=== PATIENT | male | born 1965 | race Caucasian/White ===

== ENCOUNTER → 2018-04-03 | Outpatient (CLI) | payer BC ==
--- NOTE | 2018-04-03 11:23 | P.PAINCN ---
History of Present Illness - Reason for Consult Consult date: 04/03/18 - History of Present Illness This is 54 years old male with a chronic history of severe numbness and tingling sensation in his feet , and also he has severe low back pain, patient reported that he had back pain for more than 20 years but, he started having severe numbness and tingling in his feet bilaterally, patient had EMG/nerve conduction study done several years ago, we don't have any report available, and he reported that they told him that he had neuropathy , also patient complaining of severe low back pain which is increased with any activity ,he denies any motor or sensory deficit he denies any change in the bowel movements or urination, he denies any fever or night sweats Medications and Allergies Home Medications Medication Instructions Recorded Confirmed Type Amitriptyline HCl [Elavil] 1 tab PO DAILY 04/03/18 04/03/18 History Atorvastatin [Lipitor] 1 tab PO DAILY 04/03/18 04/03/18 History Gabapentin 1 tab PO QID 04/03/18 04/03/18 History Glucosamine-Chondr 500-400Mg 1 tab PO BID 04/03/18 04/03/18 History Ibuprofen [Motrin Ib] 1 tab PO Q3-4H PRN 04/03/18 04/03/18 History Lisinopril [Zestril] 1 tab PO DAILY 04/03/18 04/03/18 History Multivitamin [Men's Multi-Vitamin] 1 tab PO DAILY 04/03/18 04/03/18 History Naproxen Sodium [Naprelan] 1 tab PO BID 04/03/18 04/03/18 History metFORMIN HCL ER [Glucophage Xr] 1 tab PO DAILY 04/03/18 04/03/18 History Allergies Allergy/AdvReac Type Severity Reaction Status Date / Time No Known Allergies Allergy Verified 04/03/18 10:29 Physical Exam Vitals: Intake and Output 04/02/18 04/03/18 04/03/18 22:59 06:59 14:59 Other: Weight 133.81 kg Social history : not smoker , NO ETOH , NO Illegal drugs use . Review of Systems : 1- Constitutional : no chills , no fever , no night sweats , 2- Ears : no ear discharge , no change in hearing 3-Nose, Mouth ,Throat ; no bleeding gums, no sore throat , no epistaxis , 4-Cardiovascular : Denies chest pain, , no orthopnea , no palpitation 5-Respiratory : Denies cough , no dyspnea , no hemoptysis 6-Gastrointestinal :, no change in bowel habits , no coffee- ground emesis . 7-Genitourinary : No hematuria , no discharge , no incontinence, 8-Musculoskeletal : No gait dysfunction , report low back pain , 9- Neurological : no ataxia , no tremor , no sezure , 10-Psychatric , no suicidal ideation no hallucination 11- Endocrine : no cold intolerence , no polyuria , no polydypsia , 12-Hematologic : no easy bleeding , no easy brusing , 13-Allergic / immunology : no angioedema , no wheezing ,no allergic rhinitis 14-Integumentary : no brttle nails , no change hair / nails , no foot/leg ulcers . Physical Examinations : 1-Constitutional : Cooperative , not in acute distress . 2-HEENT : nech ; supple , no Lymphadenopathy , no Thyromegaly , :eyes , no icterus, no photophobia . ENT : , normal oropharynx , no Thrush 3- Respiratory : Chest clear to auscultations Bilaterally , no wheezing 4- Cardiovascular : regular rate and rhythem , S1 , S2 , no S3 , no S4. 5- Gastrointestinal: abdomen soft no tenderness , no organomegally . 6- Genitourinary : Defferred . 7-Integumentary : No cellulitis , no ulcers , normal skin turgor , no cyanotic . 8- neurologic : Cranial nerve II to XII intact , no focal neurological deffecit 9-psychatric : alert , oriented X 3 , appropriate affect , intact judgment and insight . 10-Lymphatic : no Lymphadenopathy. 11- musculoskeltal: normal gait Lumber spine moter stegnth lower extremities ,thigh and legs 5/5 Right side , 5/5 Left side deep tendon reflexes : normal Knee Jerk , normal ankle Jerk positive lumber facet Loading Test Range of motion of the lumbar spine Flexion 30 degrees, extension 10 degrees strait leg raising test , positive at 60 degree Fabere test positive RT and positive LT . Results Comments: MRI of the lumbar spine done at [facility] in 02/19/2018 multilevel lumbar degenerative disc disease and multilevel facet arthropathy/hypertrophy variable multilevel neuroforaminal narrowing Assessment and Plan Plan: Assessment and plan= lumbar radiculopathy , lumbar foraminal stenosis , lumbar spondylosis with lumbar facet arthropathy Patient would be good candidate to have lumbar epidural steroid injections under fluoroscopy guidancex2, if he continued to have Symptoms after the lumbar epidural steroid injection then we will consider ordering EMG/nerve conduction study. Also if patient continued to have the numbness, and a tingling sensation in the lower extremity we should consider changing Neurontin to Lyrica, patient did continue his current medication Motrin 800 mg every 8 hours, and Neurontin 400 mg 3 times a day Time with Patient: Greater than 30 PQRS Measure Charge Sheet Measure #130: Documentation of Current Meds in Medical Chart: Patient's medications documented in chart Measure #226: Tobacco Use: Screen & Cessation Intervention: Pt not a tobacco user Measure #111: Pneumonia Vaccination: Pneumococcal vaccine NOT administered or previously given Measure #47: Advance Care Plan: Advance care planning discussed & documented, pt chose/unable to give Measure #412: Opioid Treatment Agreement: No documentation of signed opioid treatment agreement Measure #408: Opioid Therapy Follow-up Evaluation: Patient had NO f/u eval minimum every 3 months during opioid therapy Measure #317: Preventitive Care & Scrn High Bld Press & F/U: Pre-hypertensive or hypertensive BP documented, pt will f/u with PCP Measure #128: Body Mass Index (BMI) Screening & Follow-up: BMI documented ABOVE normal parameters - f/u documented Measure #131: Pain Assessment & Follow-up: Pain positive & plan documented, Follow-up scheduled Measure #431: Unhealthy Alcohol Use Preventative Care & Scrn: Patient not identified as an unhealthy alcohol user Home Medications: Ambulatory Orders Amitriptyline HCl [Elavil] 1 tab PO DAILY 04/03/18 Atorvastatin [Lipitor] 1 tab PO DAILY 04/03/18 Gabapentin 1 tab PO QID 04/03/18 Glucosamine-Chondr 500-400Mg 1 tab PO BID 04/03/18 Ibuprofen [Motrin Ib] 1 tab PO Q3-4H PRN 04/03/18 Lisinopril [Zestril] 1 tab PO DAILY 04/03/18 Multivitamin [Men's Multi-Vitamin] 1 tab PO DAILY 04/03/18 Naproxen Sodium [Naprelan] 1 tab PO BID 04/03/18 metFORMIN HCL ER [Glucophage Xr] 1 tab PO DAILY 04/03/18
== END ==
LOC: PNWHC3 10:26
PROVIDERS: ATTEND Specialist
DX: M48.061 Spinal stenosis, lumbar region without neurogenic claudication (principal); M47.26 Other spondylosis with radiculopathy, lumbar region; M46.96 Unspecified inflammatory spondylopathy, lumbar region; Z79.1 Long term (current) use of non-steroidal anti-inflammatories (NSAID); Z79.899 Other long term (current) drug therapy; Z79.84 Long term (current) use of oral hypoglycemic drugs
CPT/HCPCS: 99211

== ENCOUNTER 2018-04-16 08:50 | Day surgery (SDC) | payer BC ==
[2018-04-15 09:49] VITALS: BMI 40.0
[~2018-04-16 08:50] MED LIST: SODIUM CHLORIDE 0.9% 500 ML 500 ML IV SCH
[2018-04-16] MEDS ORDERED: LACTATED RINGERS 1,000 ML IV ONE (09:50)
[2018-04-16 09:51] LABS: Glucose,Whole Blood 122 mg/dL (75-99)
[2018-04-16 09:52] VITALS: TEMP 97
--- NOTE | 2018-04-16 10:24 | P.PCN ---
Date of Procedure: 04/16/18 Procedure(s) Performed: PREOPERATIVE DIAGNOSIS: 1- Lumbar Degenerative Disc Diseases 2-Lumbar Radiculopathy POSTOPERATIVE DIAGNOSIS: 1-Lumber Degenerative Disc Diseases 2-Lumbar Radiculopathy PROCEDURE 1. Lumbar epidural steroid injection under fluoroscopic guidance at the L5-S1 level. 2. Lumbar epidurogram. ANESTHESIA: Local with 1% lidocaine 3 ml and , moderate sedation with intravenous Versed 2 mg ,and fentanyle 50 Mcg EBL: Minimal PROCEDURE INDICATION: The patient with low back pain and radiculitis symptoms unresponsive to conservative treatment. Fluoroscopy was used to optimize visualization of the needle placement and to maximize safety. PROCEDURE DESCRIPTION / TECHNIQUE: The patient was seen and identified in the preoperative area. Risks, benefits , complications including but not limited to infections ,bleeding ,allergic reaction to the medications ,nerve damage and not complete pain releife , and alternatives were discussed with the patient. The patient agreed to proceed with the procedure and signed the consent. IV was started, and vital signs were stable. Patient was taken to the OR and time out was completed. The patient was placed in the prone position on procedure table and a pillow was placed under the abdomen to reduce lumbar lordosis. The lumbosacral area was prepped and draped in the usual sterile fashion.ere closely monitored during the procedure. Conscious sedation was used during the procedure to decrease patients anxiety. Vital signs was monitered during the entire procedure. Using anterior-posterior fluoroscopy, the L5-S1 interlaminar space was identified and the skin over this site was marked and then infiltrated with 1% lidocaine subcutaneously. Subsequently, a 20-gauge Tuohy epidural needle was inserted and advanced toward the epidural space using the ``Loss of resistance technique and guided by AP and lateral fluoroscopy. The correct needle position in the epidural space was verified with the injection of 2 mL of the water soluble contrast dye Isovue 200 contrast and observing an excellent epidurogram with the epidural spread of the dye, after negative aspiration for blood and CSF and in the absence of paresthesias. Again after negative aspiration, a 6 ml mixture containing 80 mg of Depo-medrol , and 2 ml of preservative free Normal Saline, and 2 ml of preservative free lidocaine 1% solution was injected and a washout of epidurogram was seen. Needle was withdrawn intact, skin was cleansed, and bandages were applied. COMPLICATIONS: None DISPOSITION / PLANS: The patient was placed in a supine position and transferred to the recovery area in a stable condition for observation. There was no evidence of lower extremity motor or sensory deficit after the procedure. Patient was discharged from the recovery room after meeting discharge criteria. Home discharge instructions were given to the patient by the staff. The patient was reexamined prior to discharge. The patient will schedule a follow up in the clinic in 2-4 weeks.
[2018-04-16] MEDS ORDERED: IV FLUID CONTINUATION 1,000 ML IV ONE ×2 (10:32)
[2018-04-16 10:40] VITALS: RESP 16
--- NOTE | 2018-04-16 10:49 | FL ---
EXAMINATION TYPE: FL guided pain mgmt statistic DATE OF EXAM: 04/16/2018 FLUOROSCOPY Fluoroscopy time of 1 seconds was used during lumbar epidural injection. 1 image/s document/s the pr ghassan.
[2018-04-16 10:53] VITALS: BP 153/81; PULSE 70
== END 2018-04-16 11:08 | disposition home or self-care (01) ==
LOC: ORPAIN 08:50
PROVIDERS: ATTEND Specialist
DX: G89.29 Other chronic pain (principal); M51.16 Intervertebral disc disorders with radiculopathy, lumbar region; M48.061 Spinal stenosis, lumbar region without neurogenic claudication; M47.26 Other spondylosis with radiculopathy, lumbar region; Z79.899 Other long term (current) drug therapy; Z79.1 Long term (current) use of non-steroidal anti-inflammatories (NSAID); Z79.84 Long term (current) use of oral hypoglycemic drugs
CPT/HCPCS: 62323; J2250; J1030; J3010; Q9966

== ENCOUNTER → 2018-05-06 | Day surgery (SDC) | payer BC ==
[2018-05-02 13:05] VITALS: BMI 36.8
[2018-05-06 07:08] VITALS: TEMP 97.2
--- NOTE | 2018-05-06 07:15 | P.PCN ---
Date of Procedure: 05/06/18 Anesthesia: none Description of Procedure: PREOPERATIVE DIAGNOSIS: 1-lumbar radiculopathy POSTOPERATIVE DIAGNOSIS: Lumbar radiculopathy PROCEDURE 1. Lumbar epidural steroid injection under fluoroscopic guidance at the L5/1 level. 2. Lumbar epidurogram. ANESTHESIA: Local with 1% lidocaine 5 ml EBL: Minimal PROCEDURE INDICATION: The patient with low back pain and radiculitis symptoms unresponsive to conservative treatment. Fluoroscopy was used to optimize visualization of the needle placement and to maximize safety. PROCEDURE DESCRIPTION / TECHNIQUE: The patient was seen and identified in the preoperative area. Risks, benefits , complications including but not limited to infections ,bleeding ,allergic reaction to the medications ,nerve damage and incomplete pain relief , as well as alternatives to the procedure were discussed with the patient. The patient agreed to proceed with the procedure and signed the consent. IV was started, and vital signs were stable. Patient was taken to the OR and time out was completed. The patient was placed in the prone position on procedure table and a pillow was placed under the abdomen to reduce lumbar lordosis. The lumbosacral area was prepped and draped in the usual sterile fashion.ere closely monitored during the procedure. Conscious sedation was used during the procedure to decrease patients anxiety. Vital signs was monitored during the entire procedure. Using anterior-posterior fluoroscopy, the L5/1 interlaminar space was identified and the skin over this site was marked and then infiltrated with 1% lidocaine subcutaneously. Subsequently, a 20-gauge Tuohy epidural needle was inserted and advanced toward the epidural space using the ``Loss of resistance" technique and guided by AP and lateral fluoroscopy. The correct needle position in the epidural space was verified with the injection of 1 mL of the water soluble contrast dye Omnipaque 180 contrast and observing an excellent epidurogram with the epidural spread of the dye, after negative aspiration for blood and CSF and in the absence of paresthesias. Again after negative aspiration, a 4 ml mixture containing 10 mg of Dexamethasone and 3 ml of preservative free Normal Saline was injected and a washout of epidurogram was seen. Needle was withdrawn intact, skin was cleansed, and bandages were applied. COMPLICATIONS: None DISPOSITION / PLANS: The patient was placed in a supine position and transferred to the recovery area in a stable condition for observation. There was no evidence of lower extremity motor or sensory deficit after the procedure. Patient was discharged from the recovery room after meeting discharge criteria. Home discharge instructions were given to the patient by the staff. The patient was reexamined prior to discharge. Plan is to repeat # 3 in a couple weeks, if there is no improvement we may need to attempt TFESI or refer for surgical evaluation.
[2018-05-06 07:20] LABS: Glucose,Whole Blood 127 mg/dL (75-99)
[2018-05-06 07:41] VITALS: RESP 18
[2018-05-06 07:45] LABS: Glucose,Whole Blood 133 mg/dL (75-99)
[2018-05-06 07:50] VITALS: BP 130/76; PULSE 76
--- NOTE | 2018-05-06 07:54 | FL ---
EXAMINATION TYPE: FL guided pain mgmt statistic DATE OF EXAM: 05/06/2018 COMPARISON: NONE HISTORY: Back pain TECHNIQUE: Fluoroscopy. FINDINGS: Fluoroscopic guidance was provided during procedure performed by Dr. Gonzalez. A total of 2 seconds of fluoroscopic time was utilized during the procedure and 1 spot images was acquired demon strating localization of the lumbar spine and a single level. IMPRESSION: As Above.
== END | disposition home or self-care (01) ==
LOC: ORPAIN 06:16
PROVIDERS: ATTEND Hospitalist
DX: M48.061 Spinal stenosis, lumbar region without neurogenic claudication (principal); M47.26 Other spondylosis with radiculopathy, lumbar region; Z79.84 Long term (current) use of oral hypoglycemic drugs; Z79.899 Other long term (current) drug therapy
CPT/HCPCS: 62323; J1100; Q9966

== ENCOUNTER 2018-05-27 05:54 | Day surgery (SDC) | payer BC ==
[2018-05-23 14:41] VITALS: BMI 39.3
[2018-05-27] MEDS ORDERED: LACTATED RINGERS 1,000 ML IV ONE (06:25)
[2018-05-27 06:44] VITALS: RESP 16; TEMP 97
[2018-05-27 06:45] LABS: Glucose,Whole Blood 138 mg/dL (75-99)
--- NOTE | 2018-05-27 07:47 | P.PCN ---
Date of Procedure: 05/27/18 Surgeon: Jose De Jesus So Pathology: none sent Condition: stable Disposition: PACU Description of Procedure: PREOPERATIVE DIAGNOSIS: 1-Lumbar radiculopathy 2- Lumber Degenerative Disc Diseases. POSTOPERATIVE DIAGNOSIS: 1-Lumbar radiculopathy. 2-Lumbar Degenerative Disc Diseases PROCEDURE 1. Lumbar epidural steroid injection under fluoroscopic guidance at the L5-S1 level. 2. Lumbar epidurogram. ANESTHESIA: Local with 1% lidocaine; and IV moderate conscious sedation with Versed and fentanyl EBL: Minimal PROCEDURE INDICATION: The patient with low back pain and radiculitis symptoms unresponsive to conservative treatment. Fluoroscopy was used to optimize visualization of the needle placement and to maximize safety. PROCEDURE DESCRIPTION / TECHNIQUE: The patient was seen and identified in the preoperative area. Risks, benefits, complications including but not limited to infections ,bleeding ,allergic reaction to the medications ,nerve damage and not complete pain relief , and alt ernatives were discussed with the patient. The patient agreed to proceed with the procedure and signed the consent. IV was started, and vital signs were stable. Patient was taken to the OR and time out was completed. The patient was placed in the prone position on procedure table and a pillow was placed under the abdomen to reduce lumbar lordosis. The lumbosacral area was prepped and draped in the usual sterile fashion with ChloraPrep.Patient was closely monitored during the procedure. Conscious sedation was used during the procedure to decrease patients anxiety. Vital signs were monitered during the entire procedure. Using anterior-posterior fluoroscopy, the L5-S1 interlaminar space was identified and the skin over this site was marked and then infiltrated with 1% lidocaine subcutaneously. Subsequently, a 20-gauge Tuohy epidural needle was inserted and advanced toward the epidural space using the Loss of resistance to air technique and guided by AP and lateral fluoroscopy. The correct needle position in the epidural space was verified with the injection of 1 mL of the water soluble contrast dye Omnipaque 180 contrast and observing an excellent epidurogram with the epidural spread of the dye, after negative aspiration for blood and CSF and in the absence of paresthesias. Again after negative aspiration, a 8 ml mixture containing 40 mg of Kenalog and 5 ml of preservative free Normal Saline, and 2 ml of preservative free ropivacaine 0.5% solution was injected and a washout of epidurogram was seen. Needle was withdrawn intact, skin was cleansed, and bandages were applied. patient tolerated procedure well and was transferred to PACU in stable condition. COMPLICATIONS: None
[2018-05-27] MEDS ORDERED: IV FLUID CONTINUATION 1,000 ML IV ONE (07:53)
[2018-05-27 08:03] VITALS: BP 154/83; PULSE 80
--- NOTE | 2018-05-27 08:15 | FL ---
EXAMINATION TYPE: FL guided pain mgmt statistic DATE OF EXAM: 05/27/2018 HISTORY: Pain 4sec fluoro time, 2 images scanned
== END 2018-05-27 08:14 | disposition home or self-care (01) ==
LOC: ORPAIN 05:54
PROVIDERS: ATTEND Anesthesiology
DX: M51.16 Intervertebral disc disorders with radiculopathy, lumbar region (principal); I10 Essential (primary) hypertension; E11.9 Type 2 diabetes mellitus without complications
CPT/HCPCS: 62323; J3301; Q9966

== ENCOUNTER → 2018-06-10 | Outpatient (CLI) | payer BC ==
[2018-06-10 12:38] VITALS: BP 137/83; PULSE 70; RESP 18
--- NOTE | 2018-06-11 05:44 | P.PN ---
Subjective Progress Note Date: 06/10/18 This is a follow-up visit for this 53 years old male with a chronic history of severe numbness and tingling sensation in his feet , and also he has severe low back pain, patient reported that he had back pain for more than 20 years but, he started having severe numbness and tingling in his feet bilaterally, we have done lumbar epidural steroid injections 3, and that helped his low back pain, but he continued to have severe numbness and tingling sensation in the distal part of his feet bilaterally, he reported that he feels squeezing tight and his pressure numbness sensation in the dorsum and the bottom distal part of the feet, it's constant, he denies any change in the color of the feet, he denies any change in the temperature in bolus feets,he denies any motor or sensory deficit he denies any change in the bowel movements or urination, he denies any fever or night sweats Physical Examinations : 1-Constitutional : Cooperative , not in acute distress . 2-HEENT : nech ; supple , no Lymphadenopathy , no Thyromegaly , :eyes , no icterus, no photophobia . . 3- neurologic : Cranial nerve II to XII intact , no focal neurological deffecit 4-psychatric : alert , oriented X 3 , appropriate affect , intact judgment and insight . 5-Lymphatic : no Lymphadenopathy. 6- musculoskeltal: normal gait Lumber spine moter stegnth lower extremities ,thigh and legs 5/5 Right side , 5/5 Left side deep tendon reflexes : normal Knee Jerk , normal ankle Jerk positive lumber facet Loading Test Range of motion of the lumbar spine Flexion 60 degrees, extension 30 degrees strait leg raising test , negative bilaterally Fabere test negative bilaterally. Positive allodynia, at the distal part of the feet bilaterally, the feet normal color, no edema, no swelling, no discharge Results Comments: MRI of the lumbar spine done at [facility] in 02/19/2018 multilevel lumbar degenerative disc disease and multilevel facet arthropathy/hypertrophy variable multilevel neuroforaminal narrowing Assessment and Plan Plan: Assessment and plan= lumbar radiculopathy , lumbar foraminal stenosis , lumbar spondylosis with lumbar facet arthropathy Patient had no benefit from lumbar epidural steroid injections 3 The clinical picture fits mostly peripheral neuropathy, patient will be referred to have EMG/nerve conduction study Patient will not benefit from surgical intervention with the distribution of the pain is only at the distal part of the feet, Patient may be a candidate for spinal cord stimulator, I discussed this option with the patient positioned showed no interest in pursuing Spinal cord stimulator patient will continue to use Neurontin 600 mg 3 times a day, ibuprofen when necessary PQRS Measure Charge Sheet Measure #130: Documentation of Current Meds in Medical Chart: Patient's medications documented in chart Measure #226: Tobacco Use: Screen & Cessation Intervention: Pt not a tobacco user Measure #111: Pneumonia Vaccination: Pneumococcal vaccine NOT administered or previously given Measure #47: Advance Care Plan: Advance care planning discussed & documented, pt chose/unable to give Measure #412: Opioid Treatment Agreement: No documentation of signed opioid treatment agreement Measure #408: Opioid Therapy Follow-up Evaluation: Patient had NO f/u eval minimum every 3 months during opioid therapy Measure #317: Preventitive Care & Scrn High Bld Press & F/U: Pre-hypertensive or hypertensive BP documented, pt will f/u with PCP Measure #128: Body Mass Index (BMI) Screening & Follow-up: BMI documented ABOVE normal parameters - f/u documented Measure #131: Pain Assessment & Follow-up: Pain positive & plan documented, Follow-up scheduled Measure #431: Unhealthy Alcohol Use Preventative Care & Scrn: Patient not identified as an unhealthy alcohol user Home Medications: Ambulatory Orders Objective - Vital Signs Vital signs: Vital Signs Temp Pulse 70 06/10/18 12:31 Resp 18 06/10/18 12:31 BP 137/83 06/10/18 12:31 Pulse Ox 96 06/10/18 12:31 Intake & Output 06/10/18 06/10/18 06/11/18 06:59 18:59 06:59 Weight 131.542 kg
== END ==
LOC: PNWHC3 12:08
PROVIDERS: ATTEND Specialist
DX: G89.29 Other chronic pain (principal); M48.061 Spinal stenosis, lumbar region without neurogenic claudication; M47.26 Other spondylosis with radiculopathy, lumbar region; M46.86 Other specified inflammatory spondylopathies, lumbar region; G62.9 Polyneuropathy, unspecified
CPT/HCPCS: 99211

== ENCOUNTER 2019-03-03 05:55 | Day surgery (SDC) | payer BC ==
[2019-03-02 09:10] VITALS: BMI 38.6
[~2019-03-03 05:55] MED LIST changes: +DEXAMETHASONE SOD PHOSPHATE 10 MG/ML 1 ML VIAL IV ONE; +HEPARIN SODIUM,PORCINE 5,000 UNIT/ML 1 ML VIAL SQ ONE; +LACTATED RINGERS 1,000 ML IV SCH; +LIDOCAINE 1% 20 ML VIAL (10MG/ML) FOR IV START INTRADERMA PRN; +MIDAZOLAM 2 MG/2 ML VIAL IV PRN; +ONDANSETRON 4 MG/2 ML VIAL IVP ONE; +SCOPOLAMINE 1.5MG/72HR PATCH TRANSDERM ONE; -SODIUM CHLORIDE 0.9% 500 ML 500 ML IV SCH; +ceFAZolin 3 GM in SODIUM CHLORIDE 0.9% 100 ML IVPB ONE
[2019-03-03 06:35] LABS: Glucose,Whole Blood 188 mg/dL (75-99)
[2019-03-03] MEDS ORDERED: BUPIVACAIN-EPI 0.25%-1:200,000 30 ML VIAL SQ ONE (07:42)
[2019-03-03] MEDS ORDERED: MIDAZOLAM 2 MG/2 ML VIAL ONE (07:43)
[2019-03-03] MEDS ORDERED: SUCCINYLCHOLINE CHLORIDE 100 MG/5 ML SYR IV ONE (07:43)
[2019-03-03] MEDS ORDERED: NEOSTIGMINE 1 MG/ML 10 ML VIAL ONE (07:43)
[2019-03-03] MEDS ORDERED: KETAMINE 10 MG/ML 20 ML VIAL ONE (07:43)
[2019-03-03] MEDS ORDERED: fentaNYL (PF) 50 MCG/ML 2 ML AMP ONE (07:43)
[2019-03-03] MEDS ORDERED: GLYCOPYRROLATE 0.2 MG/ML 2 ML VIAL ONE (07:43)
[2019-03-03] MEDS ORDERED: LIDOCAINE 1% INJ 10MG/ML (20 ML MDV) ONE (07:43)
[2019-03-03] MEDS ORDERED: PROPOFOL 10 MG/ML 20 ML VIAL IV ONE (07:43)
[2019-03-03] MEDS ORDERED: ROPIVACAINE 5 MG/ML 30 ML VIAL ONE (07:43)
[2019-03-03] MEDS ORDERED: HYDROmorphone (PF) 1 MG/ML ONE (07:43)
[2019-03-03] MEDS ORDERED: ROCURONIUM BROMIDE 10 MG/ML 10 ML VIAL IV ONE (07:43)
--- NOTE | 2019-03-03 07:49 | P.GSHP ---
History of Present Illness H&P Date: 03/03/19 Chief Complaint: Incarcerated umbilical hernia This a 53-year-old male who presents today for laparoscopic robotic-assisted repair of incarcerated umbilical hernia. Patient will be tender mass in his umbilicus. He seen Raoul found have an incarcerated umbilical hernia. Past Medical History Past Medical History: Diabetes Mellitus, Hyperlipidemia, Hypertension, Musculoskeletal Disorder, Sleep Apnea/CPAP/BIPAP Additional Past Medical History / Comment(s): umbilical hernia, back pain, lizeth feet N/T, History of Any Multi-Drug Resistant Organisms: None Reported Past Surgical History: Orthopedic Surgery Additional Past Surgical History / Comment(s): surgery to right wrist, PAIN CLINIC PROCEDURES Past Anesthesia/Blood Transfusion Reactions: No Reported Reaction Smoking Status: Former smoker - Past Family History Mother Family Medical History: No Reported History Medications and Allergies Home Medications Medication Instructions Recorded Confirmed Type Atorvastatin [Lipitor] 20 mg PO DAILY 04/03/18 03/02/19 History Gabapentin 600 mg PO BID 04/03/18 03/02/19 History Multivitamin [Men's Multi-Vitamin] 1 tab PO DAILY 04/03/18 03/02/19 History Naproxen Sodium [Naprelan] 500 mg PO BID 04/03/18 03/02/19 History metFORMIN HCL ER [Glucophage Xr] 1,000 mg PO QAM 04/03/18 03/02/19 History Atenolol/Chlorthalidone 1 tab PO QAM 06/24/18 03/02/19 History [Atenolol-Chlorthalidone 50-25] Cannabidiol (Cbd) Extract 1 applic PO DAILY PRN 03/02/19 03/02/19 History [Epidiolex] DULoxetine HCL [Cymbalta] 60 mg PO DAILY 03/02/19 03/02/19 History Allergies Allergy/AdvReac Type Severity Reaction Status Date / Time No Known Allergies Allergy Verified 03/03/19 06:21 Surgical - Exam Vital Signs Temp Pulse Resp BP Pulse Ox 98.1 F 60 16 165/83 97 03/03/19 06:17 03/03/19 06:17 03/03/19 06:17 03/03/19 06:17 03/03/19 06:17 - General well developed, well nourished, no distress - Eyes PERRL - ENT normal pinna - Neck no masses - Respiratory normal expansion - Cardiovascular Rhythm: regular - Abdomen Abdomen: soft Hernia: umbilical (2 cm incarcerated umbilical hernia) Results - Labs Abnormal Lab Results - Last 24 Hours (Table) 03/03/19 Range/Units 06:34 POC Glucose (mg/dL) 188 H (75-99) mg/dL Assessment and Plan Assessment: Incarcerated umbilical hernia. We'll perform laparoscopic robotic-assisted repair.
[2019-03-03 08:58] VITALS: TEMP 97
[2019-03-03] MEDS ORDERED: LACTATED RINGERS 1,000 ML IV ONE ×2 (09:00)
[2019-03-03] MEDS: HYDROmorphone 0.5 MG/0.5 ML SYRINGE IVP PRN ×4 (09:08→09:53)
[2019-03-03] MEDS ORDERED: KETOROLAC 30 MG/ML 1 ML VIAL IVP ONE (09:09)
--- NOTE | 2019-03-03 09:14 | P.OP ---
Date of Procedure: 03/03/19 Preoperative Diagnosis: Incarcerated umbilical hernia Postoperative Diagnosis: Incarcerated umbilical hernia Procedure(s) Performed: Laparoscopic robotic-assisted repair of incarcerated umbilical hernia Anesthesia: RICHARD Surgeon: Lang Sutherland Pathology: other (Omentum) Condition: stable Disposition: PACU Description of Procedure: The patient was placed on the operating table in the supine position. He received general anesthesia. His abdomen was prepped and draped usual fashion. Using a 5 mm optical trocar under direct visualization the peritoneal cavity was entered in the left upper quadrant. The abdomen was then insufflated. The laparoscope was placed back into the perineal cavity. Next a 8 mm robotic trocar was placed in the left lower quadrant and a 12 mm robotic trocar was placed in the left lateral position. The original 5 mm trocar was exchanged for a 8 mm robotic trocar. The patient's placed in the left side up position. And the patient was undocked the robot. The umbilical hernia was visualized. The incarcerated omentum was dissected free with cautery and sent to pathology. Using hook cautery the peritoneum over the umbilical hernia was excised. The fascial opening was repaired using 0V LOC suture. Next a piece of 11 cm round ventral light ST mesh was placed into the. Cavity and secured with 2 OV lock suture. The patient was undocked the robot. The needles were retrieved. The fascia of the 12 mm trocar site was closed with 0 Ethibond suture. Skin was closed interrupted 3-0 Monocryl suture. Dermabond dressings was applied. Patient top procedure well and was sent to recovery room stable condition.
[2019-03-03 09:34] LABS: Glucose,Whole Blood 236 mg/dL (75-99)
[2019-03-03] MEDS ORDERED: INSULIN ASPART (NovoLOG) 100 UNIT/ML VIAL SQ ONE (10:07)
--- NOTE | 2019-03-03 10:38 | P.ANPRN ---
Procedure Note - Anesthesia - Nerve Block Performed Bilateral Transversus Abdominis Single Time Out Performed: Yes Date of Procedure: 03/03/19 Procedure Start Time: 10:15 Procedure Stop Time: 10:20 Location of Patient: Phase I Indication: Acute Post-Operative Pain, Analgesia, Requested by Surgeon Sedation Type: Sedate with meaningful contact maintained Preparation: Sterile Prep Position: Supine Catheter: None Needle Types: Pajunk Needle Gauge: 21 Ultrasound used to visualize needle placement: Yes Ultrasound used to observe medication spread: Yes Injectate: 0.5% Ropivacaine (see comment for volume) (15cc b/l) Blood Aspirated: No Pain Paresthesia on Injection Noted: No Resistance on Injection: Normal Image Stored and Saved: Yes Events: Uneventful and Well Tolerated
[2019-03-03 10:53] VITALS: RESP 16
[2019-03-03] MEDS ORDERED: HYDROcodone/APAP 5-325MG 1 EACH TAB PO ONE (11:25)
[2019-03-03 11:51] VITALS: BP 106/71; PULSE 64
== END 2019-03-03 12:08 | disposition home or self-care (01) ==
LOC: OR 05:55
PROVIDERS: ATTEND Surgery
DX: K42.0 Umbilical hernia with obstruction, without gangrene (principal); E78.5 Hyperlipidemia, unspecified; I10 Essential (primary) hypertension; Z87.891 Personal history of nicotine dependence; Z99.89 Dependence on other enabling machines and devices; Z79.84 Long term (current) use of oral hypoglycemic drugs; Z79.899 Other long term (current) drug therapy; E11.40 Type 2 diabetes mellitus with diabetic neuropathy, unspecified; G47.30 Sleep apnea, unspecified
CPT/HCPCS: 64488; 88305; 49653; C1781; J2250; J1644; J1100; J2710; J0690; J2405; J2001; J3010; J1885; J1170 ×2; J2795; J0330; J2704

== ENCOUNTER 2019-03-05 23:05 | Inpatient (IN) | payer BC ==
[2019-03-05] MEDS ORDERED: FAMOTIDINE 20 MG/2 ML VIAL IV STA (23:20)
[2019-03-05] MEDS ORDERED: EPINEPHrine 1 MG/ML 1 ML AMP IM STA (23:20)
[2019-03-05] MEDS ORDERED: diphenhydrAMINE 50 MG/ML 1 ML VIAL IVP STA (23:20)
[2019-03-05] MEDS ORDERED: DEXAMETHASONE SOD PHOSPHATE 10 MG/ML 1 ML VIAL IV STA (23:21)
[2019-03-05 23:35] LABS: Basophils # (A) 0.1 k/uL (0-0.2); Basophils % (A) 1 %; Eosinophils # (A) 0.3 k/uL (0-0.7); Eosinophils % (A) 4 %; HCT 42.3 % (39.0-53.0); HGB 14.3 gm/dL (13.0-17.5); Lymphocytes # (A) 1.3 k/uL (1.0-4.8); Lymphocytes % (A) 20 %; MCH 29.5 pg (25.0-35.0); MCHC 33.9 g/dL (31.0-37.0); MCV 87.1 fL (80.0-100.0); Mean Platelet Volume 8.3; Monocytes # (A) 0.5 k/uL (0-1.0); Monocytes % (A) 7 %; Neutrophils # (A) 4.5 k/uL (1.3-7.7); Neutrophils % (A) 67 %; Platelet Count 194 k/uL (150-450); RBC 4.86 m/uL (4.30-5.90); RDW 13.7 % (11.5-15.5); WBC 6.8 k/uL (3.8-10.6)
[2019-03-05 23:41] LABS: African American GFR (CKD) >90 (>60 ml/min/1.73 sqM); Anion Gap 7 mmol/L; Blood Urea Nitrogen 19 mg/dL (9-20); Calcium 9.4 mg/dL (8.4-10.2); Carbon Dioxide 29 mmol/L (22-30); Chloride 101 mmol/L (98-107); Glucose 164 mg/dL (74-99); Non-African American GFR(CKD) >90 (>60 ml/min/1.73 sqM); Potassium 3.6 mmol/L (3.5-5.1); Sodium 137 mmol/L (137-145)
--- NOTE | 2019-03-05 23:43 | ED ---
General Adult HPI - General Chief complaint: Allergic Reaction Stated complaint: Allergic Reaction Time Seen by Provider: 03/05/19 23:15 Source: patient Mode of arrival: wheelchair Limitations: no limitations - History of Present Illness Initial comments: Dictation was produced using [employer] dictation software. please excuse any grammatical, word or spelling errors. Chief Complaint: 53-year-old male presents with tongue swelling. History of Present Illness: 63-year-old male who presents today with tongue swelling. Patient states symptoms started at 6 PM. He was eating at that time. Patient reports that his tongue started to swell causing him to have difficulty speaking. Patient has no history of angioedema. Denies any ALLERGIES. Recently patient had umbilical hernia repair. Patient does not take any lisinopril. Patient denies any issues swallowing. Denies any shortness of breath. No abdominal pain. Denies any rash. The ROS documented in this emergency department record has been reviewed and confirmed by me. Those systems with pertinent positive or negative responses have been documented in the HPI. All other systems are other negative and/or noncontributory. PHYSICAL EXAM: General Impression: Alert and oriented x3, not in acute distress HEENT: Normocephalic atraumatic, extra-ocular movements intact, pupils equal and reactive to light bilaterally, mucous membranes moist, swollen tongue, posterior oropharynx is not swollen, nonswollen lips Cardiovascular: Heart regular rate and rhythm, S1&S2 audible, no murmurs, rubs or gallops Chest: Lungs clear to auscultation bilaterally, no rhonchi, no wheeze, no rales Abdomen: Bowel sounds present, abdomen soft, non-tender, non-distended, no organomegaly Musculoskeletal: Pulses present and equal in all extremities, no peripheral edema Motor: no focal deficits noted Neurological: CN II-XII grossly intact, no focal motor or sensory deficits noted Skin: Intact with no visualized rashes Psych: Normal affect and mood ED course: 63-year-old male with clinical presentation consistent with tongue angioedema. At this point is unclear what causes patient's symptoms. He does not take lisinopril. There is concern that maybe this is an ALLERGIC reaction to exposure from today. Upon arrival are within acceptable limits. Given that there is concern that this is an ALLERGIC issue patient given epinephrine IM, antihistamines and Decadron. Patient is well-appearing at this time is handling secretions not showing any signs of respiratory distress. Laboratory evaluation obtained. CBC, metabolic panel is unremarkable. Patient was given epi, Decadron, antihistamines. He is observed in emergency department. Patient denies any improvement of the symptoms. Denies any changes of his symptoms however. Given patient's clinical presentation and believe he would benefit from short stay in ICU for airway monitoring. Discussed patient case with Dr. Nath who is agreeable.patient reevaluated at bedside. He still tolerating secretions and showing no signs of respiratory distress. patient's tongue is still edematous. - Related Data Home Medications Medication Instructions Recorded Confirmed Atorvastatin [Lipitor] 20 mg PO DAILY 04/03/18 03/02/19 Gabapentin 600 mg PO BID 04/03/18 03/02/19 Multivitamin [Men's Multi-Vitamin] 1 tab PO DAILY 04/03/18 03/02/19 Naproxen Sodium [Naprelan] 500 mg PO BID 04/03/18 03/02/19 metFORMIN HCL ER [Glucophage Xr] 1,000 mg PO QAM 04/03/18 03/02/19 Atenolol/Chlorthalidone 1 tab PO QAM 06/24/18 03/02/19 [Atenolol-Chlorthalidone 50-25] Cannabidiol (Cbd) Extract 1 applic PO DAILY PRN 03/02/19 03/02/19 [Epidiolex] DULoxetine HCL [Cymbalta] 60 mg PO DAILY 03/02/19 03/02/19 Previous Rx's Medication Instructions Recorded Docusate [Colace] 100 mg PO BID #20 capsule 03/03/19 HYDROcodone/APAP 5-325MG [[place] 1 tab PO Q6HR PRN #10 tab 03/03/19 5-325] Allergies Allergy/AdvReac Type Severity Reaction Status Date / Time No Known Allergies Allergy Verified 03/05/19 23:11 Review of Systems ROS Statement: Those systems with pertinent positive or pertinent negative responses have been documented in the HPI. ROS Other: All systems not noted in ROS Statement are negative. Past Medical History Past Medical History: Diabetes Mellitus, Hyperlipidemia, Hypertension, Musculoskeletal Disorder, Sleep Apnea/CPAP/BIPAP Additional Past Medical History / Comment(s): umbilical hernia, back pain, lizeth feet N/T, History of Any Multi-Drug Resistant Organisms: None Reported Past Surgical History: Orthopedic Surgery Additional Past Surgical History / Comment(s): surgery to right wrist, PAIN CLINIC PROCEDURES Past Anesthesia/Blood Transfusion Reactions: No Reported Reaction Past Psychological History: No Psychological Hx Reported Smoking Status: Former smoker Past Alcohol Use History: None Reported Past Drug Use History: None Reported - Past Family History Mother Family Medical History: No Reported History General Exam Limitations: no limitations Course Vital Signs 03/05/19 03/05/19 03/06/19 23:09 23:32 00:13 Temperature 99.0 F Pulse Rate 76 72 77 Respiratory 18 18 18 Rate Blood Pressure 167/106 156/106 148/89 O2 Sat by Pulse 94 L 95 94 L Oximetry Medical Decision Making - Lab Data Result diagrams: 03/05/19 23:19 03/05/19 23:19 Lab Results 03/05/19 03/05/19 Range/Units 23:19 23:19 WBC 6.8 (3.8-10.6) k/uL RBC 4.86 (4.30-5.90) m/uL Hgb 14.3 (13.0-17.5) gm/dL Hct 42.3 (39.0-53.0) % MCV 87.1 (80.0-100.0) fL MCH 29.5 (25.0-35.0) pg MCHC 33.9 (31.0-37.0) g/dL RDW 13.7 (11.5-15.5) % Plt Count 194 (150-450) k/uL Neutrophils % 67 % Lymphocytes % 20 % Monocytes % 7 % Eosinophils % 4 % Basophils % 1 % Neutrophils # 4.5 (1.3-7.7) k/uL Lymphocytes # 1.3 (1.0-4.8) k/uL Monocytes # 0.5 (0-1.0) k/uL Eosinophils # 0.3 (0-0.7) k/uL Basophils # 0.1 (0-0.2) k/uL Sodium 137 (137-145) mmol/L Potassium 3.6 (3.5-5.1) mmol/L Chloride 101 (98-107) mmol/L Carbon Dioxide 29 (22-30) mmol/L Anion Gap 7 mmol/L BUN 19 (9-20) mg/dL Creatinine 0.92 (0.66-1.25) mg/dL Est GFR (CKD-EPI)AfAm >90 (>60 ml/min/1.73 sqM) Est GFR (CKD-EPI)NonAf >90 (>60 ml/min/1.73 sqM) Glucose 164 H (74-99) mg/dL Calcium 9.4 (8.4-10.2) mg/dL Disposition Clinical Impression: Angioedema Disposition: ADMITTED IP TO THIS HOSP Condition: Critical Referrals: Torres Posadas DO [Primary Care Provider] - 1-2 days Decision Time: 00:31
[2019-03-06] MEDS ORDERED: NALOXONE 0.4 MG/ML 1 ML VIAL IV PRN (00:28)
[2019-03-06] MEDS ORDERED: SODIUM CHLORIDE 0.9% 1,000 ML IV SCH (00:30)
[2019-03-06 02:54] LABS: Glucose,Whole Blood 273 mg/dL (75-99)
[2019-03-06] MEDS: MORPHINE SULFATE 2 MG/ML SYRINGE IV PRN ×2 (03:24→08:26)
[2019-03-06 05:11] LABS: Basophils % (A) 0 %; Eosinophils % (A) 1 %; HCT 41.4 % (39.0-53.0); Lymphocytes # (A) 0.5 k/uL (1.0-4.8); Lymphocytes % (A) 6 %; MCHC 33.9 g/dL (31.0-37.0); MCV 88.4 fL (80.0-100.0); Mean Platelet Volume 8.6; Monocytes # (A) 0.5 k/uL (0-1.0); Monocytes % (A) 5 %; Neutrophils # (A) 8.1 k/uL (1.3-7.7); Neutrophils % (A) 88 %; Platelet Count 194 k/uL (150-450); RBC 4.68 m/uL (4.30-5.90); RDW 13.7 % (11.5-15.5); WBC 9.2 k/uL (3.8-10.6)
[2019-03-06 05:22] LABS: African American GFR (CKD) >90 (>60 ml/min/1.73 sqM); Anion Gap 8 mmol/L; Blood Urea Nitrogen 18 mg/dL (9-20); Calcium 9.3 mg/dL (8.4-10.2); Carbon Dioxide 27 mmol/L (22-30); Chloride 101 mmol/L (98-107); Glucose 260 mg/dL (74-99); Non-African American GFR(CKD) >90 (>60 ml/min/1.73 sqM); Potassium 3.9 mmol/L (3.5-5.1); Sodium 136 mmol/L (137-145)
[2019-03-06 06:29] LABS: Glucose,Whole Blood 263 mg/dL (75-99)
[2019-03-06] MEDS ORDERED: INSULIN ASPART (NovoLOG) 100 UNIT/ML VIAL SQ SCH (07:30)
[2019-03-06] MEDS ORDERED: HEPARIN SODIUM,PORCINE 5,000 UNIT/ML 1 ML VIAL SQ SCH (08:00)
[2019-03-06] MEDS: ATENOLOL 50 MG TAB PO SCH ×2 (08:27→09:12)
[2019-03-06] MEDS ORDERED: PANTOPRAZOLE 40 MG/10 ML VIAL IV SCH (09:00)
[2019-03-06] MEDS ORDERED: HYDROcodone/APAP 5-325MG 1 EACH TAB PO PRN (10:47)
--- NOTE | 2019-03-06 10:54 | P.CNPUL ---
<Veronica Rush M - Last Filed: 03/06/19 10:38> History of Present Illness Consult date: 03/06/19 Requesting physician: Hector Vargas Reason for consult: other Chief complaint: Tongue swelling, angioedema History of present illness: This is a 53-year-old patient with past medical history of hypertension, diabetes mellitus type 2, with the diabetic neuropathy, hyperlipidemia, sleep apnea on CPAP, former smoker, with recent history of hernia repair, and patient was discharged home 2 days ago. On 03/05/2019 patient presented to the hospital for evaluation of increased swelling of his tongue, difficulty swallowing. He states the onset of his symptoms immediately after he ate an ice cream drumstick last night, and felt his tongue getting more swollen, it continued to swell and it was difficult for the patient to speak, he felt his upper palate becoming more swollen as well, he was having difficulty swallowing and was not able to swallow his own saliva. He denied any difficulty breathing, he denied any stridor, denied any facial swelling or throat swelling. Denies any prior history of food, environmental or drug allergies. No new medications. He stated that he does not usually eat this brand of ice cream. No Rian inhibitors or ARBS on his medication list. Denies any rash. Patient [facility] into the [facility] evaluation, patient was given intramuscular epinephrine, antihistamines and Decadron. His symptoms started improving, patient was admitted to the intensive care units for close monitoring, and this morning his tongue swelling significantly improved, he sitting up in the recliner, in no acute distress, his tongue swelling has significantly decreased, he just feels that his frenulum is slightly irritated, and there is some irritation in the back of his throat, no stridor, no difficulty breathing, vital signs stable. Patient's labs were unremarkable. No radiographic imaging, patient is tolerating oral intake, he did well with sips of water and ice chips, he will be started on a diet this morning Review of Systems All systems: negative Constitutional: Denies chills, Denies fever Eyes: denies blurred vision, denies pain Ears, nose, mouth and throat: Reports dysphagia, Reports voice changes, Denies headache, Denies sore throat Cardiovascular: Denies chest pain, Denies shortness of breath Respiratory: Denies cough Gastrointestinal: Denies abdominal pain, Denies diarrhea, Denies nausea, Denies vomiting Musculoskeletal: Denies myalgias Integumentary: Denies pruritus, Denies rash Neurological: Denies numbness, Denies weakness Psychiatric: Denies anxiety, Denies depression Endocrine: Denies fatigue, Denies weight change Allergic/Immunologic: Reports angioedema Past Medical History Past Medical History: Diabetes Mellitus, Hyperlipidemia, Hypertension, Musculoskeletal Disorder, Sleep Apnea/CPAP/BIPAP Additional Past Medical History / Comment(s): umbilical hernia - repaired 03/03/19, back pain, lizeth feet N/T, History of Any Multi-Drug Resistant Organisms: None Reported Past Surgical History: Hernia Repair, Orthopedic Surgery Additional Past Surgical History / Comment(s): surgery to right wrist, PAIN CLINIC PROCEDURES, umbilical herniar repaired 03/03/19, left groin hernia repair 1974 Past Anesthesia/Blood Transfusion Reactions: No Reported Reaction Past Psychological History: No Psychological Hx Reported Smoking Status: Former smoker Past Alcohol Use History: None Reported Additional Past Alcohol Use History / Comment(s): QUIT SMOKING APPROX 2007, SMOKED 1PPD FROM TEENS, no alcohol in past year Past Drug Use History: None Reported Additional Drug Use History / Comment(s): cbd oil occasionally, instructed to hold 24 hrs prior to procedure - Past Family History Mother Family Medical History: No Reported History Medications and Allergies Home Medications Medication Instructions Recorded Confirmed Type Atorvastatin [Lipitor] 20 mg PO DAILY 04/03/18 03/06/19 History Gabapentin 600 mg PO BID 04/03/18 03/06/19 History Multivitamin [Men's Multi-Vitamin] 1 tab PO DAILY 04/03/18 03/06/19 History Naproxen Sodium [Naprelan] 500 mg PO BID 04/03/18 03/06/19 History Atenolol/Chlorthalidone 1 tab PO QAM 06/24/18 03/06/19 History [Atenolol-Chlorthalidone 50-25] Cannabidiol (Cbd) Extract 1 applic PO DAILY PRN 03/02/19 03/06/19 History [Epidiolex] DULoxetine HCL [Cymbalta] 60 mg PO DAILY 03/02/19 03/06/19 History Docusate [Colace] 100 mg PO BID #20 capsule 03/03/19 03/06/19 Rx HYDROcodone/APAP 5-325MG [[place] 1 tab PO Q6HR PRN #10 tab 12/17/19 12/20/19 Rx 5-325] Famotidine [Pepcid] 20 mg PO BID #14 tablet 03/06/19 Rx metFORMIN HCL [Glucophage] 500 mg PO BID 03/06/19 03/06/19 History methylPREDNISolone Dose Pack 4 mg PO DIRECTED #21 package 03/06/19 Rx [Medrol Dose Pack] Allergies Allergy/AdvReac Type Severity Reaction Status Date / Time No Known Allergies Allergy Verified 03/06/19 07:47 Physical Exam Vitals: Vital Signs Temp Pulse Resp BP Pulse Ox 03/06/19 07:00 73 16 148/84 93 L 03/06/19 06:00 80 16 176/102 94 L 03/06/19 05:00 82 18 154/84 93 L 03/06/19 04:00 98.2 F 82 19 164/93 93 L 03/06/19 02:50 98.1 F 76 22 162/88 91 L 03/06/19 02:02 98.8 F 88 20 148/94 95 03/06/19 00:13 77 18 148/89 94 L 03/05/19 23:32 72 18 156/106 95 03/05/19 23:09 99.0 F 76 18 167/106 94 L Intake and Output 03/05/19 03/06/19 03/06/19 22:59 06:59 14:59 Intake Total 390 130 Balance 390 130 Intake: IV 390 130 Sodium Chloride 0.9% 1, 390 130 000 ml @ 130 mls/hr IV . Q7H42M [facility] Rx#:[id number] Other: # Voids 1 Weight 136 kg GENERAL EXAM: Alert, very pleasant, 53-year-old white male, on room air pulse o x of 93% in no apparent distress. HEAD: Normocephalic/atraumatic. EYES: Normal reaction of pupils, equal size. Conjunctiva pink, sclera white. NOSE: Clear with pink turbinates. THROAT: No erythema or exudates. NECK: No masses, no JVD, no thyroid enlargement, no adenopathy. CHEST: No chest wall deformity. Symmetrical expansion. LUNGS: Equal air entry with mild basilar crackles, no wheeze, rhonchi or dullness. CVS: Regular rate and rhythm, normal S1 and S2, no gallops, no murmurs, no rubs ABDOMEN: Soft, nontender. No hepatosplenomegaly, normal bowel sounds, no guarding or rigidity. EXTREMITIES: No clubbing, no edema, no cyanosis, 2+ pulses and upper and lower extremities. MUSCULOSKELETAL: Muscle strength and tone normal. SPINE: No scoliosis or deformity SKIN: No rashes CENTRAL NERVOUS SYSTEM: Alert and oriented -3. No focal deficits, tone is normal in all 4 extremities. PSYCHIATRIC: Alert and oriented -3. Appropriate affect. Intact judgment and insight. Results - Laboratory Findings CBC and BMP: 03/06/19 04:43 03/06/19 04:43 Abnormal lab findings: Abnormal Labs 03/05/19 03/06/19 03/06/19 23:19 02:41 04:43 Neutrophils # 8.1 H Lymphocytes # 0.5 L Sodium Glucose 164 H POC Glucose (mg/dL) 273 H 03/06/19 03/06/19 04:43 06:28 Neutrophils # Lymphocytes # Sodium 136 L Glucose 260 H POC Glucose (mg/dL) 263 H Assessment and Plan Plan: Assessment: #1. Acute angioedema, tongue swelling, difficulty swallowing, possibly related to a food allergen #2. Recent hernia repair surgery #3. No known ALLERGIES #4. Hypertension #5. Hyperlipidemia #6. Diabetes mellitus type II with diabetic neuropathy #7. Obesity #8. Sleep apnea on CPAP therapy #9. Former smoker Plan: Patient is doing well, his tongue swelling has significantly subsided, no swallowing difficulty, no difficulty breathing, let us signs are stable, he is on room air, she is doing well with thin liquids, we'll start him on a diet this morning, we'll consider discharge home today I performed a history & physical examination of the patient and discussed their management with my nurse practitioner, Veronica Rush. I reviewed the nurse practitioner's note and agree with the documented findings and plan of care. Lung sounds are positive for a few basilar crackles. The findings and the impre ssion was discussed with the patient. I attest to the documentation by the nurse practitioner. Time with Patient: Greater than 30 <Sarah Nath - Last Filed: 03/06/19 12:12> Physical Exam Vitals: Vital Signs Temp Pulse Resp BP Pulse Ox 03/06/19 07:00 73 16 148/84 93 L 03/06/19 06:00 80 16 176/102 94 L 03/06/19 05:00 82 18 154/84 93 L 03/06/19 04:00 98.2 F 82 19 164/93 93 L 03/06/19 02:50 98.1 F 76 22 162/88 91 L 03/06/19 02:02 98.8 F 88 20 148/94 95 03/06/19 00:13 77 18 148/89 94 L 03/05/19 23:32 72 18 156/106 95 03/05/19 23:09 99.0 F 76 18 167/106 94 L Intake and Output 03/05/19 03/06/19 03/06/19 22:59 06:59 14:59 Intake Total 390 780 Balance 390 780 Intake: IV 390 780 Sodium Chloride 0.9% 1, 390 780 000 ml @ 130 mls/hr IV . Q7H42M [facility] Rx#:[id number] Other: # Voids 1 # Bowel Movements 1 Weight 136 kg Results - Laboratory Findings CBC and BMP: 03/06/19 04:43 03/06/19 04:43 Abnormal lab findings: Abnormal Labs 03/05/19 03/06/19 03/06/19 23:19 02:41 04:43 Neutrophils # 8.1 H Lymphocytes # 0.5 L Sodium Glucose 164 H POC Glucose (mg/dL) 273 H 03/06/19 03/06/19 04:43 06:28 Neutrophils # Lymphocytes # Sodium 136 L Glucose 260 H POC Glucose (mg/dL) 263 H Assessment and Plan Assessment: ventilated the patient along with the nurse practitioner. The patient developed angioedema which is improving. He also has obstructive sleep apnea. His tongue swelling has subsided. Reviewing his medication reveals that the patient is taken nonsteroidal anti-inflammatory medication in form of Naprosyn. This could be the culprit. Avoid Naprosyn in the future or any other form of nonsteroidal anti-inflammatory medication. Rest of the medication will be resumed. The patient will be discharged home. I gave my information for any future needs regarding ERIK
[2019-03-06 12:21] VITALS: BP 137/94; PULSE 76; RESP 20; TEMP 97.7
--- NOTE | 2019-03-06 13:21 | P.DS ---
Providers Date of admission: 03/06/19 00:30 Attending physician: Beata Crawford Consults: 03/06/19 00:28 Consult Physician Stat Consulting Provider: Sarah Nath Consult Reason/Comments: angioedema Do you want consulting provider notified?: Already Contacted [facility] Course: Please refer to my HPI Patient Condition at Discharge: Critical Plan - Discharge Summary Discharge Rx Participant: Yes New Discharge Prescriptions: New methylPREDNISolone Dose Pack [Medrol Dose Pack] 4 mg PO DIRECTED #21 package Famotidine [Pepcid] 20 mg PO BID #14 tablet No Action Multivitamin [Men's Multi-Vitamin] 1 tab PO DAILY Gabapentin 600 mg PO BID Naproxen Sodium [Naprelan] 500 mg PO BID Atorvastatin [Lipitor] 20 mg PO DAILY Atenolol/Chlorthalidone [Atenolol-Chlorthalidone 50-25] 1 tab PO QAM DULoxetine HCL [Cymbalta] 60 mg PO DAILY Cannabidiol (Cbd) Extract [Epidiolex] 1 applic PO DAILY PRN PRN Reason: neuropathy Docusate [Colace] 100 mg PO BID #20 capsule HYDROcodone/APAP 5-325MG [[place] 5-325] 1 tab PO Q6HR PRN #10 tab PRN Reason: Pain metFORMIN HCL [Glucophage] 500 mg PO BID Discharge Medication List Atorvastatin [Lipitor] 20 mg PO DAILY 04/03/18 [History] Gabapentin 600 mg PO BID 04/03/18 [History] Multivitamin [Men's Multi-Vitamin] 1 tab PO DAILY 04/03/18 [History] Naproxen Sodium [Naprelan] 500 mg PO BID 04/03/18 [History] Atenolol/Chlorthalidone [Atenolol-Chlorthalidone 50-25] 1 tab PO QAM 06/24/18 [History] Cannabidiol (Cbd) Extract [Epidiolex] 1 applic PO DAILY PRN 03/02/19 [History] DULoxetine HCL [Cymbalta] 60 mg PO DAILY 03/02/19 [History] Docusate [Colace] 100 mg PO BID #20 capsule 03/03/19 [Rx] HYDROcodone/APAP 5-325MG [[place] 5-325] 1 tab PO Q6HR PRN #10 tab 03/03/19 [Rx] Famotidine [Pepcid] 20 mg PO BID #14 tablet 03/06/19 [Rx] metFORMIN HCL [Glucophage] 500 mg PO BID 03/06/19 [History] methylPREDNISolone Dose Pack [Medrol Dose Pack] 4 mg PO DIRECTED #21 package 03/06/19 [Rx] Follow up Appointment(s)/Referral(s): Torres Posadas, [Primary Care Provider] - 03/09/19 2:20 pm (Amie will see you in the office. Dr. Posadas is off that week.) Discharge Disposition: HOME SELF-CARE
--- NOTE | 2019-03-06 13:21 | P.HPIM ---
History of Present Illness 53-year-old male is admitted for ALLERGIC reaction angioedema swelling of the tongue and difficulty swallowing after eating a new brand ice cream with nuts. Patient had a recent hernia repair. Patient the angina edema resolved com pletely patient's breathing improved patient doesn't have any shortness of breath denied any fever chills nausea vomiting abdominal pain. Patient doesn't take BRYANT inhibitors and this time patient was given epinephrine and antihistamines and Decadron in ER this evening give him improvement in his sy mptoms. Patient was admitted to ICU for monitoring patient is doing better now will be discharged today on Medrol Dosepak and Pepcid. Patient is obese probably has sleep apnea need sleep study as an outpatient. Review of Systems REVIEW OF SYSTEMS: CONSTITUTIONAL: No fever, no malaise, no fatigue. HEENT: No recent visual problems or hearing problems. Denied any sore throat. CARDIOVASCULAR: No chest pain, orthopnea, PND, no palpitations, no syncope. PULMONARY: No shortness of breath, no cough, no hemoptysis. GASTROINTESTINAL: No diarrhea, no nausea, no vomiting, no abdominal pain. NEUROLOGICAL: No headaches, no weakness, no numbness. HEMATOLOGICAL: Denies any bleeding or petechiae. GENITOURINARY: Denies any burning micturition, frequency, or urgency. MUSCULOSKELETAL/RHEUMATOLOGICAL: Denies any joint pain, swelling, or any muscle pain. ENDOCRINE: Denies any polyuria or polydipsia. The rest of the 14-point review of systems is negative. Past Medical History Past Medical History: Diabetes Mellitus, Hyperlipidemia, Hypertension, Musculoskeletal Disorder, Sleep Apnea/CPAP/BIPAP Additional Past Medical History / Comment(s): umbilical hernia - repaired 03/03/19, back pain, lizeth feet N/T, History of Any Multi-Drug Resistant Organisms: None Reported Past Surgical History: Hernia Repair, Orthopedic Surgery Additional Past Surgical History / Comment(s): surgery to right wrist, PAIN CLINIC PROCEDURES, umbilical herniar repaired 03/03/19, left groin hernia repair 1973 Past Anesthesia/Blood Transfusion Reactions: No Reported Reaction Past Psychological History: No Psychological Hx Reported Smoking Status: Former smoker Past Alcohol Use History: None Reported Additional Past Alcohol Use History / Comment(s): QUIT SMOKING APPROX 2007, SMOKED 1PPD FROM TEENS, no alcohol in past year Past Drug Use History: None Reported Additional Drug Use History / Comment(s): cbd oil occasionally, instructed to hold 24 hrs prior to procedure - Past Family History Mother Family Medical History: No Reported History Medications and Allergies Home Medications Medication Instructions Recorded Confirmed Type Atorvastatin [Lipitor] 20 mg PO DAILY 04/03/18 03/06/19 History Gabapentin 600 mg PO BID 04/03/18 03/06/19 History Multivitamin [Men's Multi-Vitamin] 1 tab PO DAILY 04/03/18 03/06/19 History Naproxen Sodium [Naprelan] 500 mg PO BID 04/03/18 03/06/19 History Atenolol/Chlorthalidone 1 tab PO QAM 06/24/18 03/06/19 History [Atenolol-Chlorthalidone 50-25] Cannabidiol (Cbd) Extract 1 applic PO DAILY PRN 03/02/19 03/06/19 History [Epidiolex] DULoxetine HCL [Cymbalta] 60 mg PO DAILY 03/02/19 03/06/19 History Docusate [Colace] 100 mg PO BID #20 capsule 03/03/19 03/06/19 Rx HYDROcodone/APAP 5-325MG [[place] 1 tab PO Q6HR PRN #10 tab 03/03/19 03/06/19 Rx 5-325] Famotidine [Pepcid] 20 mg PO BID #14 tablet 03/06/19 Rx metFORMIN HCL [Glucophage] 500 mg PO BID 03/06/19 03/06/19 History methylPREDNISolone Dose Pack 4 mg PO DIRECTED #21 package 03/06/19 Rx [Medrol Dose Pack] Allergies Allergy/AdvReac Type Severity Reaction Status Date / Time No Known Allergies Allergy Verified 03/06/19 07:47 Physical Exam Vitals: Vital Signs Temp Pulse Resp BP Pulse Ox 03/06/19 12:00 76 20 137/94 95 03/06/19 11:00 74 20 121/86 97 03/06/19 10:00 70 20 144/82 97 03/06/19 09:00 76 18 164/108 96 03/06/19 08:00 97.7 F 74 16 161/94 97 03/06/19 07:00 73 16 148/84 93 L 03/06/19 06:00 80 16 176/102 94 L 03/06/19 05:00 82 18 154/84 93 L 03/06/19 04:00 98.2 F 82 19 164/93 93 L 03/06/19 02:50 98.1 F 76 22 162/88 91 L 03/06/19 02:02 98.8 F 88 20 148/94 95 03/06/19 00:13 77 18 148/89 94 L 03/05/19 23:32 72 18 156/106 95 03/05/19 23:09 99.0 F 76 18 167/106 94 L Intake and Output 03/05/19 03/06/19 03/06/19 22:59 06:59 14:59 Intake Total 390 780 Balance 390 780 Intake: IV 390 780 Sodium Chloride 0.9% 1, 390 780 000 ml @ 130 mls/hr IV . Q7H42M [facility] Rx#:[id number] Other: # Voids 1 # Bowel Movements 1 Weight 136 kg PHYSICAL EXAMINATION: GENERAL: The patient is alert and oriented x3, not in any acute distress. Obese HEENT: Pupils are round and equally reacting to light. EOMI. No scleral icterus. No conjunctival pallor. Normocephalic, atraumatic. No pharyngeal erythema. No thyromegaly. CARDIOVASCULAR: S1 and S2 present. No murmurs, rubs, or gallops. PULMONARY: Chest is clear to auscultation, no wheezing or crackles. ABDOMEN: Soft, nontender, nondistended, normoactive bowel sounds. No palpable organomegaly. MUSCULOSKELETAL: No joint swelling or deformity. EXTREMITIES: No cyanosis, clubbing, or pedal edema. NEUROLOGICAL: Gross neurological examination did not reveal any focal deficits. SKIN: No rashes. Results CBC & Chem 7: 03/06/19 04:43 03/06/19 04:43 Labs: Abnormal Lab Results - Last 24 Hours (Table) 03/05/19 03/06/19 03/06/19 Range/Units 23:19 02:41 04:43 Neutrophils # 8.1 H (1.3-7.7) k/uL Lymphocytes # 0.5 L (1.0-4.8) k/uL Sodium (137-145) mmol/L Glucose 164 H (74-99) mg/dL POC Glucose (mg/dL) 273 H (75-99) mg/dL 12/20/19 12/20/19 Range/Units 04:43 06:28 Neutrophils # (1.3-7.7) k/uL Lymphocytes # (1.0-4.8) k/uL Sodium 136 L (137-145) mmol/L Glucose 260 H (74-99) mg/dL POC Glucose (mg/dL) 263 H (75-99) mg/dL Thrombosis Risk Factor Assmnt - Choose All That Apply Each Factor Represents 1 point: Age 41-60 years Each Risk Factor Represents 2 Points: Laparoscopic surgery Thrombosis Risk Factor Assessment Total Risk Factor Score: 3 Thrombosis Risk Factor Assessment Level: Moderate Risk Assessment and Plan Plan: Angioedema resolved and patient is clinically doing well and was discharged today on Medrol Dosepak and Pepcid. Patient probably has some ALLERGIC reaction to her ingredients in any ice cream or nuts and ice cream. Naproxen may have contributed but patient has been taking this medication for some time. Obesity possibly of sleep apnea patient will need sleep study as an outpatient -hyperlipidemia Hypertension -Type 2 diabetes mellitus Patient will resume and continue his rest of his home medications
[2019-03-06] MEDS ORDERED: GABAPENTIN 300 MG CAP PO SCH (21:00)
[2019-03-06] MEDS ORDERED: metFORMIN 500 MG TAB PO SCH (21:00)
[2019-03-07] MEDS ORDERED: ATORVASTATIN 20 MG TAB PO SCH (09:00)
[2019-03-07] MEDS ORDERED: DULoxetine HCL 60 MG CAPSULE.DR PO SCH (09:00)
== END 2019-03-06 13:55 | disposition home or self-care (01) | DRG 916 ==
LOC: EC 23:05 → 2SICU 03-06 00:30
PROVIDERS: ADMIT Internal Medicine; ATTEND Internal Medicine
DX: T78.3XXA Angioneurotic edema, initial encounter (principal); Z68.41 Body mass index [BMI] 40.0-44.9, adult; E11.40 Type 2 diabetes mellitus with diabetic neuropathy, unspecified; E66.9 Obesity, unspecified; E78.5 Hyperlipidemia, unspecified; G47.33 Obstructive sleep apnea (adult) (pediatric); I10 Essential (primary) hypertension; Z79.84 Long term (current) use of oral hypoglycemic drugs; Z79.899 Other long term (current) drug therapy; Z87.891 Personal history of nicotine dependence; Z99.89 Dependence on other enabling machines and devices; Z98.890 Other specified postprocedural states
CPT/HCPCS: 36415; 80048; 85025; 96372; 96374; 96375; 99285

== ENCOUNTER → 2019-05-18 | Outpatient (CLI) | payer BC ==
[2019-05-18 14:03] VITALS: BP 148/80; PULSE 66; RESP 16
--- NOTE | 2019-05-19 15:04 | P.PAINPG ---
Subjective Progress Note Date: 05/18/19 This is a follow-up visit for this 53 years old male with a chronic history of severe numbness and tingling sensation in his feet , he was last seen in our clinic in May 2018, at which point it was thought that the majority of his complaint was due to peripheral neuropathy, in the past, he had undergone lumbar epidural steroid injections 3 with no significant benefit. At last visit, we had discussed spinal cord stimulator with him, at that time he was not interested in proceeding with this. His current primary pain complaint is located in bilateral feet, described as burning, freezing, stinging, electrocution, rated as 8/10, at constant and has been present for more than 4 years. He denies aggravating or alleviating factors. He also complains of low back pain, this is rated as 2/10 and is not his primary pain complaint. He has lived with this for several years. Over the last year, he has tried several different medications including naproxen, hydrocodone, Lyrica, gabapentin, amitriptyline, CBD oil with no significant benefit. He follows with his primary care physician, Dr. Posadas, who recommended re-discussion of spinal cord stimulation. He returns today to discuss spinal cord stimulation. Review of systems is negative for chest pain, shortness of breath, new onset weakness, numbness/tingling, abdominal pain, malaise, fever, chills, homicidal or suicidal ideation, or bowel or bladder incontinence. He does endorse sweating. Physical exam: Vitals: Reviewed in EMR GENERAL: Well appearing, in no acute distress, obese PSYCH: Mood and affect is appropriate. Awake, alert, and oriented SKIN: Skin color, texture, turgor normal, no rashes or lesions HEENT: Normocephalic, atraumatic. EOM intact CV: No pedal edema RESP: Respirations are unlabored, no audible wheezing GI: Abdomen non-distended MUSCULOSKELETAL: Bilateral lower extremity strength is normal and symmetric. No atrophy or tone abnormalities are noted. Lumbar spine: Straight leg raising in the sitting position is negative for radicular pain. No pain to palpation over the lumbar spine and paraspinous muscles. Negative for pain with facet loading and back extension/rotation. Normal range of motion without pain reproduction Buttocks: No pain to palpation over the PSIS, sacroiliac joint maneuvers are negative for pain. Extremities: Peripheral joint ROM is full and pain free without obvious instability or laxity in all four extremities. No edema or skin discolorations noted. Gait: Gait is normal NEUR: Bilateral lower extremity coordination and muscle stretch reflexes are physiologic and symmetric. Negative clonus bilaterally. Positive allodynia in bilateral ankles and feet Results Comments: MRI of the lumbar spine done at [facility] in 02/19/2018 multilevel lumbar degenerative disc disease and multilevel facet arthropathy/hypertrophy variable multilevel neuroforaminal narrowing Assessment and Plan Plan: Assessment and plan= peripheral neuropathy of unknown etiology: We had a lengthy discussion regarding spinal cord stimulation and I provided him with a spinal cord stimulator handout. We will contact [facility] pain clinic and plan on scheduling him for spinal cord stimulator trial at that office. Today I ordered thoracic and lumbar spine MRI in preparation for spinal cord stimulator trial. Follow-up: With [facility] pain clinic PQRS Measure Charge Sheet Measure #130: Documentation of Current Meds in Medical Chart: Patient's medications documented in chart Measure #226: Tobacco Use: Screen & Cessation Intervention: Pt not a tobacco user Measure #111: Pneumonia Vaccination: Pneumococcal vaccine NOT administered or previously given Measure #47: Advance Care Plan: Advance care planning discussed & documented, pt chose/unable to give Measure #412: Opioid Treatment Agreement: No documentation of signed opioid treatment agreement Measure #408: Opioid Therapy Follow-up Evaluation: Patient had NO f/u eval minimum every 3 months during opioid therapy Measure #317: Preventitive Care & Scrn High Bld Press & F/U: Pre-hypertensive or hypertensive BP documented, pt will f/u with PCP Measure #128: Body Mass Index (BMI) Screening & Follow-up: BMI documented ABOVE normal parameters - f/u documented Measure #131: Pain Assessment & Follow-up: Pain positive & plan documented, Follow-up scheduled Measure #431: Unhealthy Alcohol Use Preventative Care & Scrn: Patient not identified as an unhealthy alcohol user PQRS Measure Charge Sheet PQRS Narrative: Smoking Status Former smoker Pain Intensity [Bilateral Foot 10 ] Scale Used Numeric (1 - 10) Hx Alcohol Use (MH) Yes Home Medications: Ambulatory Orders Atorvastatin [Lipitor] 20 mg PO DAILY 04/03/18 Gabapentin 600 mg PO BID 04/03/18 Multivitamin [Men's Multi-Vitamin] 1 tab PO DAILY 04/03/18 Atenolol/Chlorthalidone [Atenolol-Chlorthalidone 50-25] 1 tab PO QAM 06/24/18 Cannabidiol (Cbd) Extract [Epidiolex] 1 applic PO DAILY PRN 03/02/19 DULoxetine HCL [Cymbalta] 60 mg PO DAILY 03/02/19 metFORMIN HCL [Glucophage] 500 mg PO BID 03/06/19 Garlic 1 each PO DIRECTED 05/13/19 Turmeric (Unknown Dose) 1 cap PO DIRECTED 05/13/19 Controlled Substance Measures - Controlled Substance Measures Is patient prescribed a controlled substance at discharge?: No
== END | disposition home or self-care (01) ==
LOC: PNWHC3 13:12
PROVIDERS: ATTEND Anesthesiology
DX: G62.9 Polyneuropathy, unspecified (principal); Z87.891 Personal history of nicotine dependence; Z79.84 Long term (current) use of oral hypoglycemic drugs; Z79.899 Other long term (current) drug therapy
CPT/HCPCS: 99211

== ENCOUNTER → 2023-04-30 | Outpatient (CLI) | payer OTHER ==
--- NOTE | 2023-05-01 21:40 | US ---
EXAMINATION TYPE: US arterial LE single level DATE OF EXAM: 04/30/2023 9:31 AM CLINICAL INDICATION: Male, 58 years old with history of S91.301A UNSPECIFIED OPEN WOUND, RIGHT FOOT,; wounds on toes History of: Smoker: Previous Hypertension: Yes Diabetic: Yes Hyperlipidemia: Yes TIA/CVA: No Previous Vascular Surgery: No CAD: No VT: No Vascular Ulcers: No Claudication: No Gangrene: No Doppler Waveforms: Right: Multiphasic Left: Multiphasic Right Brachial Pressure: Not obtained due to noncompressible. Left Brachial Pressure: Not obtained due to noncompressible. Ankle-Brachial Indices: Right: NOC Left: NOC Toe Brachial Indices: Right: .35 Left: .40 IMPRESSION: 1. Toe brachial indices suggestive moderate disease. 2. Ankle-brachial indices not able to be obtained.
== END | disposition home or self-care (01) ==
LOC: RADUSWWP 08:36
PROVIDERS: ATTEND Family Medicine
DX: S91.301A Unspecified open wound, right foot, initial encounter (principal); E11.9 Type 2 diabetes mellitus without complications; I10 Essential (primary) hypertension; E78.2 Mixed hyperlipidemia; X58.XXXA Exposure to other specified factors, initial encounter
CPT/HCPCS: 93922